=== PATIENT | male | born 1945 | race Caucasian/White ===

== ENCOUNTER 2017-09-23 15:53 | Inpatient (IN) | payer MEDICARE ==
[~2017-09-23] VITALS: Ht 190.5 cm; Wt 104.3 kg
[~2017-09-23 15:53] MED LIST: FLUO10 PO; IBUP600 PO; METF500 PO; Norco 5-325 Ta1 EACH PO; PANT40 PO; PRAM.125 PO; TERA5 PO; TRIHYD253A PO
[2017-10-20] MEDS ORDERED: TERA5 PO (10:24)
[2017-10-20] MEDS ORDERED: PRAM.125 PO (10:30)
[2017-10-20] MEDS ORDERED: PANT40 PO (10:31)
[2017-10-20] MEDS ORDERED: METCAR500 PO (10:32)
[2017-10-20] MEDS ORDERED: METF500 PO (10:33)
[2017-10-20] MEDS ORDERED: FLUO10 PO (10:40)
[2017-10-20] MEDS ORDERED: IBUP800 PO (10:41)
[2017-11-10 04:46] LABS: BASOPHILS ABSOLUTE AUTO 0.03 K/mm3 (0.00-0.23); BASOPHILS PERCENT AUTO 0 % (0-2); EOSINOPHILS ABSOLUTE AUTO 0.05 K/mm3 (0.00-0.68); EOSINOPHILS PERCENT AUTO 0 % (0-6); Hematocrit 34.2 % (37.0-53.0); Hemoglobin 11.1 g/dL (13.5-17.5); IMMATURE GRAN ABSOLUTE AUTO 0.09 K/mm3 (0.00-0.10); IMMATURE GRAN PERCENT AUTO 1 % (0-1); LYMPHOCYTES ABSOLUTE AUTO 1.44 K/mm3 (0.84-5.20); LYMPHOCYTES PERCENT AUTO 12 % (21-46); MONOCYTES ABSOLUTE AUTO 1.05 K/mm3 (0.16-1.47); MONOCYTES PERCENT AUTO 9 % (4-13); Mean Corpuscular HGB Conc 32.5 g/dL (31.5-36.5); Mean Corpuscular Volume 96 fL (80-100); Mean Platelet Volume 8.6 fL (9.1-12.4); NEUTROPHILS ABSOLUTE AUTO 9.21 K/mm3 (1.96-9.15); NEUTROPHILS PERCENT AUTO 78 % (41-73); Platelet Count 228 K/mm3 (150-400); RDW Coefficient Variation 13.6 % (11.7-14.2); RDW Standard Deviation 48.1 fL (35.1-46.3); Red Blood Cell Count 3.58 M/mm3 (4.30-5.90); White Blood Cell Count 11.87 K/mm3 (4.00-11.30)
[2017-11-10] MEDS ORDERED: OXYC5 PO (14:16)
== END 2017-11-10 14:30 | disposition home or self-care (01) | DRG 483 ==
LOC: SURS 11-09 06:04 → PRE IP 11-09 07:30 → SURS 11-09 13:02
PROVIDERS: Orthopaedic Surgery
PROC: 0RRJ0JZ Replacement of Right Shoulder Joint with Synthetic Substitute, Open Approach (ICD-10-PCS; principal; 2017-11-09 07:30)
DX: M19.011 Primary osteoarthritis, right shoulder (principal); E11.9 Type 2 diabetes mellitus without complications; K21.9 Gastro-esophageal reflux disease without esophagitis; F17.210 Nicotine dependence, cigarettes, uncomplicated; G25.81 Restless legs syndrome; M65.30 Trigger finger, unspecified finger; H40.9 Unspecified glaucoma; N40.0 Benign prostatic hyperplasia without lower urinary tract symptoms; Z79.84 Long term (current) use of oral hypoglycemic drugs; Z79.899 Other long term (current) drug therapy
CPT/HCPCS: 36415; 73030; 82947; 85025; 86850; 86900; 86901; 88300; 97110; 97116; 97161; 97165; 97530; 97535; C1776; G8978; G8979; G8987; G8988; G8989; J0171; J0690; J1100; J1170; J1885; J2250; J2270; J2405; J2550; J3010; J7120

== ENCOUNTER → 2019-02-16 | Outpatient (CLI) | payer MEDICARE ==
[~2019-02-16] MED LIST changes: +IBUP800 PO; +METCAR500 PO; +OXYC5 PO
[2019-02-16 20:08] LABS: BASOPHILS ABSOLUTE AUTO 0.04 K/mm3 (0.00-0.23); BASOPHILS PERCENT AUTO 1 % (0-2); EOSINOPHILS ABSOLUTE AUTO 0.24 K/mm3 (0.00-0.68); EOSINOPHILS PERCENT AUTO 3 % (0-6); Hematocrit 39.2 % (37.0-53.0); Hemoglobin 13.1 g/dL (13.5-17.5); IMMATURE GRAN ABSOLUTE AUTO 0.03 K/mm3 (0.00-0.10); IMMATURE GRAN PERCENT AUTO 0 % (0-1); LYMPHOCYTES ABSOLUTE AUTO 1.19 K/mm3 (0.84-5.20); LYMPHOCYTES PERCENT AUTO 14 % (21-46); MONOCYTES ABSOLUTE AUTO 0.77 K/mm3 (0.16-1.47); MONOCYTES PERCENT AUTO 9 % (4-13); Mean Corpuscular HGB 30.8 pg (26.0-34.0); Mean Corpuscular HGB Conc 33.4 g/dL (31.5-36.5); Mean Corpuscular Volume 92 fL (80-100); Mean Platelet Volume 9.4 fL (9.1-12.4); NEUTROPHILS ABSOLUTE AUTO 6.21 K/mm3 (1.96-9.15); NEUTROPHILS PERCENT AUTO 73 % (41-73); Platelet Count 252 K/mm3 (150-400); RDW Coefficient Variation 14.4 % (11.7-14.2); RDW Standard Deviation 48.7 fL (35.1-46.3); Red Blood Cell Count 4.25 M/mm3 (4.30-5.90); White Blood Cell Count 8.48 K/mm3 (4.00-11.30)
[2019-02-16 20:27] LABS: Alanine Aminotransfer (ALT/SGP 31 U/L (12-78); Albumin, Blood 3.6 g/dL (3.4-5.0); Alk Phos 91 U/L (50-136); Anion Gap 5 mmol/L (6-16); Aspartate Aminotrans (AST/SGOT 18 U/L (12-37); Bilirubin, Total 0.3 mg/dL (0.1-1.0); Blood Urea Nitrogen 15 mg/dL (8-24); Bun/Creatinine Ratio 15.1 (12.0-20.0); CO2, Blood 28 mmol/L (21-32); Calcium, Blood 8.2 mg/dL (8.5-10.1); Chloride, Blood 108 mmol/L (98-108); Globulin, Blood 3.5 g/dL (2.2-4.0); Glomerular Filtration Rate >60 (60-); Glucose, Blood 122 mg/dL (70-99); Potassium, Blood 3.5 mmol/L (3.5-5.5); Sodium, Blood 141 mmol/L (136-145); Total Protein, Blood 7.1 g/dL (6.4-8.2)
== END ==
LOC: LAB 19:30 → LAB SHORT 19:30
PROVIDERS: Family Medicine
DX: R10.84 Generalized abdominal pain (principal)
CPT/HCPCS: 80053; 85025

== ENCOUNTER 2019-02-18 10:15 | Emergency (ER) | payer MEDICARE ==
[~2019-02-18] VITALS: Ht 188 cm; Wt 106.6 kg
[2019-02-18 11:01] LABS: BASOPHILS ABSOLUTE AUTO 0.04 K/mm3 (0.00-0.23); BASOPHILS PERCENT AUTO 0 % (0-2); EOSINOPHILS ABSOLUTE AUTO 0.24 K/mm3 (0.00-0.68); EOSINOPHILS PERCENT AUTO 3 % (0-6); Hemoglobin 12.4 g/dL (13.5-17.5); IMMATURE GRAN ABSOLUTE AUTO 0.06 K/mm3 (0.00-0.10); IMMATURE GRAN PERCENT AUTO 1 % (0-1); LYMPHOCYTES ABSOLUTE AUTO 1.15 K/mm3 (0.84-5.20); LYMPHOCYTES PERCENT AUTO 12 % (21-46); MONOCYTES ABSOLUTE AUTO 0.81 K/mm3 (0.16-1.47); MONOCYTES PERCENT AUTO 8 % (4-13); Mean Corpuscular HGB Conc 32.6 g/dL (31.5-36.5); Mean Corpuscular Volume 92 fL (80-100); NEUTROPHILS ABSOLUTE AUTO 7.35 K/mm3 (1.96-9.15); NEUTROPHILS PERCENT AUTO 76 % (41-73); Platelet Count 249 K/mm3 (150-400); RDW Coefficient Variation 14.3 % (11.7-14.2); RDW Standard Deviation 48.3 fL (35.1-46.3); Red Blood Cell Count 4.13 M/mm3 (4.30-5.90); White Blood Cell Count 9.65 K/mm3 (4.00-11.30)
[2019-02-18 11:13] LABS: Alanine Aminotransfer (ALT/SGP 45 U/L (12-78); Albumin, Blood 3.4 g/dL (3.4-5.0); Albumin/Globulin Ratio 0.9 (0.8-1.8); Alk Phos 93 U/L (50-136); Anion Gap 7 mmol/L (6-16); Aspartate Aminotrans (AST/SGOT 36 U/L (12-37); Bilirubin, Total 0.6 mg/dL (0.1-1.0); Blood Urea Nitrogen 13 mg/dL (8-24); Bun/Creatinine Ratio 14.5 (12.0-20.0); CO2, Blood 24 mmol/L (21-32); Calcium, Blood 8.4 mg/dL (8.5-10.1); Chloride, Blood 110 mmol/L (98-108); Globulin, Blood 3.7 g/dL (2.2-4.0); Glomerular Filtration Rate >60 (60-); Glucose, Blood 85 mg/dL (70-99); Potassium, Blood 3.6 mmol/L (3.5-5.5); Sodium, Blood 141 mmol/L (136-145); Total Protein, Blood 7.1 g/dL (6.4-8.2)
[2019-02-18 12:37] LABS: Source, Urine Clean Catch
[2019-02-18 12:52] LABS: Bilirubin, Urine Neg (Neg); Blood, Urine 1+ (Neg); Glucose Qualitative, Urine Neg (Neg); Ketones, Urine Neg (Neg); Leukocyte Esterase, Urine Neg (Neg); Nitrite, Urine Neg (Neg); Protein, Urine Neg (Neg); Urobilinogen, Urine NORM (Normal)
[2019-02-18 13:04] LABS: Appearance, Urine Clear (Clear); Color, Urine Yellow (P-Yellow)
[2019-02-18 13:07] LABS: Bacteria Rare /hpf; Red Blood Cells, Urine 0-2 /hpf (0-2); Squamous Epithelial Cells Rare /hpf (Few); White Blood Cells, Urine 0-2 /hpf (0-5)
== END 2019-02-18 13:57 | disposition home or self-care (01) ==
LOC: ER 10:15
PROVIDERS: Physician Assistant
DX: K52.9 Noninfective gastroenteritis and colitis, unspecified (principal); S91.312D Laceration without foreign body, left foot, subsequent encounter; W26.8XXD Contact with other sharp object(s), not elsewhere classified, subsequent encounter; E11.9 Type 2 diabetes mellitus without complications; Z87.891 Personal history of nicotine dependence; Z79.899 Other long term (current) drug therapy; Z79.84 Long term (current) use of oral hypoglycemic drugs
CPT/HCPCS: 36415; 80053; 81001; 83690; 85025; 93005; 93010; 99284-25

== ENCOUNTER → 2020-01-06 | Outpatient (CLI) | payer MEDICARE | END | disposition home or self-care (01) | LOC: LAB 11:58 → LAB SHORT 11:58 | DX: L03.114 Cellulitis of left upper limb (principal) | CPT/HCPCS: 87070; 87075; 87077; 87147; 87186; 87205 ==

== ENCOUNTER → 2020-07-31 | Outpatient (CLI) | payer MEDICARE ==
[2020-08-02 01:10] LABS: ADENOVIRUS F 40/41 Not Detected (Not Detected); ASTROVIRUS Not Detected (Not Detected); C DIFFICILE TOXIN A/B Not Detected (Not Detected); CAMPYLOBACTER Not Detected (Not Detected); CRYPTOSPORIDIUM Not Detected (Not Detected); CYCLOSPORA CAYETANENSIS Not Detected (Not Detected); ENTAMOEBA HISTOLYTICA Not Detected (Not Detected); ENTEROAGGREGATIVE E COLI Not Detected (Not Detected); ENTEROPATHOGENIC E COLI Not Detected (Not Detected); ENTEROTOXIGENIC E COLI Not Detected (Not Detected); GIARDIA LAMBLIA Not Detected (Not Detected); NOROVIRUS GI/GII Not Detected (Not Detected); PLESIOMONAS SHIGELLOIDES Not Detected (Not Detected); ROTAVIRUS A Not Detected (Not Detected); SALMONELLA Not Detected (Not Detected); SAPOVIRUS Not Detected (Not Detected); SHIGA-TOXIN-PRODUCING E COLI Not Detected (Not Detected); SHIGELLA/ENTEROINVASIVE E COLI Not Detected (Not Detected); VIBRIO Not Detected (Not Detected); VIBRIO CHOLERAE Not Detected (Not Detected); YERSINIA ENTEROCOLITICA Not Detected (Not Detected)
== END | disposition home or self-care (01) ==
LOC: LAB SHORT 13:55 → LAB 13:55
PROVIDERS: Family Medicine
DX: R19.7 Diarrhea, unspecified (principal); R63.4 Abnormal weight loss
CPT/HCPCS: 0097U

== ENCOUNTER 2024-09-20 03:49 | Observation (INO) | payer OTHER ==
[2024-09-20] VITALS (12 sets, daily range): BP systolic 124–148; BP diastolic 63–83
[~2024-09-20] VITALS: Ht 188 cm; Wt 108.9 kg
[2024-09-20] MEDS ORDERED: GLIP5 PO (04:28)
[2024-09-20] MEDS ORDERED: BUPROPION XL150 M1 PO (04:29)
[2024-09-20] MEDS ORDERED: Norco 7.5-3251 EACH PO (04:30)
[2024-09-20] MEDS ORDERED: Ketorolac Tromethamine 15mg Vial IV ONE (04:30)
[2024-09-20] MEDS ORDERED: ATOR40TA PO (04:31)
[2024-09-20] MEDS ORDERED: TAMSULOSIN HCL0.4 M1 PO (04:31)
[2024-09-20] MEDS ORDERED: AMLODIPINE BESYL5 MG PO (04:31)
[2024-09-20] MEDS ORDERED: SILDENAFIL CITR20 M1 PO (04:31)
[2024-09-20] MEDS ORDERED: METO25 PO (04:32)
[2024-09-20] MEDS ORDERED: LOSA50 PO (04:32)
[2024-09-20] MEDS ORDERED: LISI5 PO (04:33)
[2024-09-20] MEDS ORDERED: Methocarbamol750 MG PO (04:33)
[2024-09-20] MEDS ORDERED: TIZA4 PO (04:33)
[2024-09-20 05:00] LABS: BASOPHILS ABSOLUTE AUTO 0.07 K/mm3 (0.00-0.23); BASOPHILS PERCENT AUTO 1 % (0-2); EOSINOPHILS ABSOLUTE AUTO 0.16 K/mm3 (0.00-0.68); EOSINOPHILS PERCENT AUTO 1 % (0-6); Hematocrit 43.3 % (37.0-53.0); Hemoglobin 14.7 g/dL (13.5-17.5); IMMATURE GRAN ABSOLUTE AUTO 0.06 K/mm3 (0.00-0.10); IMMATURE GRAN PERCENT AUTO 1 % (0-1); LYMPHOCYTES ABSOLUTE AUTO 1.66 K/mm3 (0.84-5.20); LYMPHOCYTES PERCENT AUTO 15 % (21-46); MONOCYTES ABSOLUTE AUTO 1.08 K/mm3 (0.16-1.47); MONOCYTES PERCENT AUTO 10 % (4-13); Mean Corpuscular HGB 31.5 pg (26.0-34.0); Mean Corpuscular HGB Conc 33.9 g/dL (31.5-36.5); Mean Corpuscular Volume 93 fL (80-100); Mean Platelet Volume 8.8 fL (9.1-12.4); NEUTROPHILS ABSOLUTE AUTO 8.35 K/mm3 (1.96-9.15); NEUTROPHILS PERCENT AUTO 73 % (41-73); Platelet Count 269 K/mm3 (150-400); RDW Coefficient Variation 13.6 % (11.7-14.2); RDW Standard Deviation 46.5 fL (35.1-46.3); Red Blood Cell Count 4.66 M/mm3 (4.30-5.90); White Blood Cell Count 11.38 K/mm3 (4.00-11.30)
[2024-09-20 05:33] LABS: Albumin, Blood 3.7 g/dL (3.4-5.0); Bilirubin, Total 0.8 mg/dL (0.1-1.0); Bun/Creatinine Ratio 19.3 (12.0-20.0); Calcium, Blood 9.5 mg/dL (8.5-10.1); Creatinine, Blood 0.93 mg/dL (0.60-1.20); Globulin, Blood 3.8 g/dL (2.2-4.0); Potassium, Blood 4.2 mmol/L (3.5-5.5); Total Protein, Blood 7.5 g/dL (6.4-8.2)
[2024-09-20 06:04] LABS: Source, Urine Voided
[2024-09-20 06:14] LABS: Bilirubin, Urine Neg (Neg); Blood, Urine 1+ (Neg); Glucose Qualitative, Urine Neg (Neg); Ketones, Urine Neg (Neg); Leukocyte Esterase, Urine Neg (Neg); Nitrite, Urine Neg (Neg); Protein, Urine Neg (Neg); Urobilinogen, Urine NORM (Normal)
[2024-09-20] MEDS ORDERED: Dicyclomine HCl 20 MG Tab PO ONE (06:15)
[2024-09-20 06:31] LABS: Appearance, Urine Clear (Clear); Color, Urine Yellow (P-Yellow); Red Blood Cells, Urine 0-2 /hpf (0-2); White Blood Cells, Urine Not Seen /hpf (0-5)
[2024-09-20 06:32] LABS: Bacteria Not Seen /hpf; Squamous Epithelial Cells Not Seen /hpf (Few)
[2024-09-20] MEDS ORDERED: Lactated Ringer's 1,000 ML IV SCH ×3 (07:15→16:40)
[2024-09-20] MEDS ORDERED: FLU VACC TS2024-25(6MOS UP)/PF 45 MCG/0.5 ML SYRINGE IM SCH (08:15)
[2024-09-20] MEDS ORDERED: Atorvastatin 40 MG Tab PO SCH (09:00)
[2024-09-20] MEDS ORDERED: Losartan Potassium 50 MG Tab PO SCH (09:00)
[2024-09-20] MEDS ORDERED: Methocarbamol 500 MG Tab PO SCH (09:00)
[2024-09-20] MEDS ORDERED: Tamsulosin HCl 0.4 MG Cap PO SCH (09:00)
[2024-09-20] MEDS ORDERED: AmLODIPine Besylate 5 MG Tab PO SCH (09:00)
[2024-09-20] MEDS ORDERED: Metoprolol Tartrate 25 MG Tab PO SCH (09:00)
[2024-09-20] MEDS ORDERED: HYDROmorphone HCl/Pf 1MG SYR IV PRN ×2 (11:00→16:40)
[2024-09-20] MEDS ORDERED: Ampicillin Sod/Sulbactam Sod 3 GM in NS 100 ML IV SCH (12:00)
[2024-09-20] MEDS ORDERED: Insulin Regular 100 UNIT/ML 10ML Vial SC SCH ×2 (12:00→21:00)
[2024-09-20] MEDS ORDERED: propofoL 20 ML IV ONE (13:50)
[2024-09-20] MEDS ORDERED: FentaNYL Citrate 50 MCG/ML 2 ML Injection ONE (13:50)
--- NOTE | 2024-09-20 14:15 | NUR ---
PT TO DAY SURGERY WITH PULMONARY FUNCTION TECHNICIAN. PT ABLE TO STAND AND TRANSFER FROM BED TO [facility]. ADEQUATE PAIN CONTROL AT THIS TIME.
--- NOTE | 2024-09-20 14:25 | NUR ---
PT HAS 20G IV TO LEFT AC THAT FLUSHES WELL AND FLOWS TO GRAVITY.
--- NOTE | 2024-09-20 14:37 | NUR ---
PT BROUGHT FROM FLOOR TO DAY SURGERY FOR PROCEDURE. History, Chart, Medications and Allergies reviewed before start of procedure. Lungs clear T/O to Auscultation. Patient confirms NPO status and agrees with scheduled surgery. Pre-Op teaching done. Pt verbalizes understanding.
[2024-09-20] MEDS ORDERED: Bupivacaine 0.5% HCl 5 MG/ML 30MLVIAL ONE (15:10)
[2024-09-20] MEDS ORDERED: Dexamethasone Sod Phos 10 MG/ML 1ML VIAL ONE (15:14)
[2024-09-20] MEDS ORDERED: Ondansetron HCl 2 MG / ML 2ML Vial ONE (15:14)
[2024-09-20] MEDS ORDERED: Rocuronium Bromide 10 MG/ML 5ML Injection IV ONE (15:14)
--- NOTE | 2024-09-20 15:19 | NUR ---
PT GLASSES TAKEN TO PACU FOR SAFEKEEPING.
[2024-09-20] MEDS ORDERED: Phenylephrine HCl 100 MCG/ML-NS 10MLSYR (1MG/10ML) ONE (15:30)
[2024-09-20] MEDS ORDERED: ePHEDrine Sulfate 50 MG/ML 1ML Injection ONE (15:33)
[2024-09-20] MEDS ORDERED: Sugammadex Sodium 200 MG/2ML SDV (100 MG/ML) ONE (16:27)
[2024-09-20] MEDS ORDERED: HYDROcodone 5-APAP 325 TAB PO PRN (16:40)
--- NOTE | 2024-09-20 17:18 | NUR ---
ARRIVAL PT ARRIVED TO UNIT FROM PACU ON [facility]. SLID VIA SLIDER SHEET. LAP SITES X4 WITH STER STRIPS CDI. DENIES NAUSEA OR PAIN. ON ROOM AIR, SATS 96%. TOLERATING DIET WELL. PT DENIES NEEDS AT THIS TIME. PT EAGER FOR DINNER TO ARRIVE.
[2024-09-21 00:03] VITALS: BP 119/75
[2024-09-21 04:42] VITALS: BP 125/73
[2024-09-21 05:03] LABS: BASOPHILS ABSOLUTE AUTO 0.01 K/mm3 (0.00-0.23); BASOPHILS PERCENT AUTO 0 % (0-2); EOSINOPHILS PERCENT AUTO 0 % (0-6); Hemoglobin 13.6 g/dL (13.5-17.5); IMMATURE GRAN ABSOLUTE AUTO 0.07 K/mm3 (0.00-0.10); IMMATURE GRAN PERCENT AUTO 1 % (0-1); LYMPHOCYTES ABSOLUTE AUTO 0.52 K/mm3 (0.84-5.20); LYMPHOCYTES PERCENT AUTO 4 % (21-46); MONOCYTES ABSOLUTE AUTO 0.91 K/mm3 (0.16-1.47); MONOCYTES PERCENT AUTO 7 % (4-13); Mean Corpuscular HGB 32.1 pg (26.0-34.0); Mean Corpuscular Volume 94 fL (80-100); NEUTROPHILS ABSOLUTE AUTO 12.05 K/mm3 (1.96-9.15); NEUTROPHILS PERCENT AUTO 89 % (41-73); Platelet Count 259 K/mm3 (150-400); RDW Coefficient Variation 13.7 % (11.7-14.2); RDW Standard Deviation 47.5 fL (35.1-46.3); Red Blood Cell Count 4.24 M/mm3 (4.30-5.90); White Blood Cell Count 13.56 K/mm3 (4.00-11.30)
[2024-09-21 05:30] LABS: Albumin, Blood 3.4 g/dL (3.4-5.0); Albumin/Globulin Ratio 0.9 (0.8-1.8); Bilirubin, Total 0.8 mg/dL (0.1-1.0); Bun/Creatinine Ratio 22.6 (12.0-20.0); Calcium, Blood 9.2 mg/dL (8.5-10.1); Creatinine, Blood 1.06 mg/dL (0.60-1.20); Globulin, Blood 3.6 g/dL (2.2-4.0); Potassium, Blood 4.6 mmol/L (3.5-5.5)
[2024-09-21] MEDS ORDERED: Pantoprazole Sodium 40 MG Tab PO SCH (06:00)
[2024-09-21 07:36] VITALS: BP 116/62
[2024-09-21] MEDS ORDERED: Norco 7.5-3251 EACH PO (10:54)
--- NOTE | 2024-09-21 11:48 | NUR ---
RN ROUNDED ON PT WITH DR. NOEL AND DR. VILLA PRIOR TO DISCHARGE. RN THEN REVIEWED DISCHARGE INSTRUCTIONS WITH PT. RN GAVE A PAPER SCRIPT FOR [facility], SIGNED BY DR. NOEL TO PT WHO PLACED IT IN HIS WALLET. RN REMOVED PT'S IV, WHO TOLERATED PROCEDURE WELL. RN THEN ESCORTED PT OUT OF HOSPITAL VIA WHEELCHAIR, TO PT PRIVATE VEHICLE. ALL PERSONAL BELONGINGS RETURNED TO PT. NO FURTHER QUESTIONS AT THIS TIME.
== END 2024-09-21 11:39 | disposition home or self-care (01) ==
LOC: ER 03:49 → SURS 03:50
PROVIDERS: Emergency Medicine; Student in an Organized Health Care Education/Training Program; Surgery; ADMIT Internal Medicine
PROC: 0FT44ZZ Resection of Gallbladder, Percutaneous Endoscopic Approach (ICD-10-PCS; principal; 2024-09-20 14:00)
DX: K80.12 Calculus of gallbladder with acute and chronic cholecystitis without obstruction (principal); K82.1 Hydrops of gallbladder; R93.89 Abnormal findings on diagnostic imaging of other specified body structures; I10 Essential (primary) hypertension; E11.9 Type 2 diabetes mellitus without complications; N40.0 Benign prostatic hyperplasia without lower urinary tract symptoms; E66.9 Obesity, unspecified; Z68.30 Body mass index [BMI] 30.0-30.9, adult; Z66 Do not resuscitate; Z87.891 Personal history of nicotine dependence; Z79.84 Long term (current) use of oral hypoglycemic drugs; Z79.899 Other long term (current) drug therapy
CPT/HCPCS: 36415; 74177; 80053; 81001; 82947; 83605; 83690; 84484; 85025; 88304; 93005; 93010; 96361; 96374; 96375; 96376; 99285-25; A9270; G0378; J0295; J1100; J1171; J1815; J1885; J2371; J2405; J2704; J3010; J7120; Q9967